=== PATIENT | male | born 1950 | race Caucasian/White ===

== ENCOUNTER → 2017-01-20 | Outpatient (CLI) | payer OTHER ==
--- NOTE | 2017-01-20 11:33 | RADRPT ---
EXAM DATE/TIME: 01/20/2017 10:01 [place] COMPARISON: No previous studies available for comparison. INDICATIONS : Shortness of breath. MEDICAL HISTORY : Asthma. SURGICAL HISTORY : None. ENCOUNTER: Initial ACUITY: 4 - 6 months PAIN SCORE: 0/10 LOCATION: Bilateral chest FINDINGS: The heart size is within normal limits. There is diffuse mild prominence of the interstitium. A foc al consolidation is not seen. No effusion is seen. The bones appear osteopenic. There is loss of h eight at several mid thoracic vertebral bodies. CONCLUSION: 1. Mild interstitium prominence which may represent underlying processes such as mild interstitial d isease or pulmonary venous hypertension. 2. Osteopenia with compression deformity seen in at least two levels in mid thoracic spine through t o be T5 and T8. Juan C Vasquez MD on January 20, 2017 at 11:22 Board Certified Radiologist. This report was verified electronically.
== END ==
LOC: HRAD 09:46
DX: R06.02 Shortness of breath (principal)
CPT/HCPCS: 71020